=== PATIENT | male | born 1970 | race Caucasian/White ===

== ENCOUNTER 2016-09-19 13:26 | Outpatient (CLI) | payer OTHER ==
[~2016-09-19] VITALS: Ht 172.7 cm; Wt 110.9 kg
[~2016-09-19 13:26] MED LIST: ACET-789 PO; CEPH-507 PO; SULF1TAB35 PO
--- OUTSIDE RECORDS SUMMARY | 2016-09-19 13:30 | XMS REPORT | Continuity of Care Document ---
Author Author [facility] Organization [facility] Address Unknown Phone Unavailable Care Team Providers Care Senior Medical Director Name Role Phone TALI HOUSER DO PCP Insurance Providers Payer Name Policy Number Subscriber Name Relationship Self Pay Pending [facility] Apprv [id number] Lindsay Garza 18 Self / Same As Patient Advance Directives Directive Response Recorded Date/Time Advance Directives No 04/14/16 6:33pm Health Care Power of Support Engineer No 04/14/16 6:33pm Organ Donor No 04/14/16 6:33pm Resuscitation Status Full Code 04/14/16 6:33pm Chief Complaint and Reason for Visit Chief Complaint LEUKOCYTOSIS,N/V,SEIZURE-LIKE ACTIVITY Reason for Visit Nausea & vomiting Puncture wound of leg excluding thigh Problems Active Problems Medical Problem Onset Date Status Myoclonic jerking Unknown Acute Nausea & vomiting Unknown Acute Puncture wound of leg excluding thigh Unknown Acute Medications Current Home Medications Medication Dose Units Route Directions Days/Qty Instructions Start Date Acetaminophen With Codeine 1 Each 1 Each Oral Every 4HRS for Pain 15 04/18/16 Past Home Medications Medication Directions Ordered Status Cephalexin 500 Mg Capsule, 500 Mg Oral Three Times A Day 04/08/16 Discontinued Sulfamethoxazole/Trimethoprim 1 Each Tablet, 1 Each Oral Twice A Day Discontinued Cephalexin 500 Mg Capsule, 500 Mg Oral Three Times A Day 04/15/16 Discontinued Sulfamethoxazole/Trimethoprim 1 Each Tablet, 1 Tab Oral Twice A Day 04/15/16 Discontinued Social History Social History Problem Response Recorded Date/Time Alcohol Use Regular Use 04/14/2016 6:33pm Recreational Drug Use No 04/14/2016 6:33pm Recent Foreign Travel No 04/14/2016 7:11pm Recent Infectious Disease Exposure No 04/14/2016 7:11pm Hospitalization with Isolation Denies 04/18/2016 7:01pm Smoking Status Current Everyday Smoker 04/14/2016 6:33pm Type Used Cigarettes 04/17/2016 2:14pm Recent Hopitalizations No 04/14/2016 6:33pm Hospitalization with Isolation Denies 04/18/2016 7:01pm Query Response Start Date Stop Date Smoking Status Current Everyday Smoker Hospital Discharge Instructions No hospital discharge instructions. Plan of Care Discharge Date 04/18/16 7:01pm Disposition 01 HOME, SELF-CARE Instructions/Education Provided Cholecystitis (DC) Prescriptions See Medication Section Referrals TALI HOUSER DO (Unspecified) - 04/20/16 Address: [address] [place] [id number] [phone] GIANNA ELIZALDE DO (Unspecified) - Address: [address] [place] [address] [phone] Reason(s) for Referral: DR. ELIZALDE'S OFFICE WILL CALL YOU TOMORROW TO MAKE A FOLLOW UP APPOINTMENT Functional Status Query Response Date Recorded Patient Orientation Person Place Time Situation Normal For Age April 18, 2016 7:01pm Patient Orientation Person Place Time Situation April 18, 2016 7:01pm Comprehension Ability Understands Concepts April 17, 2016 8:00pm Allergies, Adverse Reactions, Alerts Allergen Type Severity Reaction Status Last Updated sulfamethoxazole ([id number]) Allergy Intermediate HIVES Active 04/15/16 Trimethoprim Allergy Intermediate HIVES Active 04/15/16 Immunizations Name Given Type DTaP-Tetanus, Dipth, Pertuss P/F (Boostrix) 04/08/16 Administered FLU TRIvalent 5 years - Adult 04/17/16 Administered Vital Signs Acute Vital Signs Vital Response Date/Time Temperature (Fahrenheit) 96.8 degrees F (97.6 - 99.5) 04/18/2016 4:00pm Temperature (Calculated Celsius) 36.28489 degrees C (36.4 - 37.5) 04/18/2016 4:00pm Temperature Source Tympanic 04/18/2016 4:00pm Pulse Rate (adult) 75 bpm (60 - 90) 04/18/2016 4:00pm Respiratory Rate 20 bpm (12 - 24) 04/18/2016 4:00pm O2 Sat by Pulse Oximetry 91 % (88 - 100) 04/18/2016 4:00pm Blood Pressure 109/64 mm Hg 04/18/2016 4:00pm Blood Pressure Mean 79 mm Hg 04/18/2016 4:00pm Pain Numeric Pain Scale 0-No Pain 04/18/2016 4:00pm Height (Feet) 5 feet 04/14/2016 7:11pm Height (Inches) 8.00 inches 04/14/2016 7:11pm Height (Calculated Centimeters) 172.699021 cm 04/14/2016 7:11pm Weight (Pounds) 180 pounds 04/14/2016 7:11pm Weight (Ounces) 7.0 oz 04/14/2016 7:11pm Weight (Calculated Grams) 41796.07 gm 04/14/2016 7:11pm Weight (Calculated Kilograms) 81.199492 kilograms 04/14/2016 7:11pm Calculated BMI 27.4 04/14/2016 7:11pm Capillary Refill Capillary Refill Less Than 3 Seconds 04/14/2016 3:38pm Results Pending Laboratory Results Test Name Collection Date/Time Pending Microbiology Results Procedure Source Collection Date/Time Procedures Procedure Status Date Provider(s) Laparoscopic cholecystectomy Completed 04/18/16 GIANNA ELIZALDE DO Encounters Encounter Location Arrival/Admit Date Discharge/Depart Date Attending Provider Discharged Inpatient [facility] 04/14/16 6:33pm 7:01pm TALI HOUSER DO Departed Emergency Room [facility] 04/11/16 8:47am 04/11 9:10am BONG FOSTER MD Departed Emergency Room [facility] 04/08/16 10:00pm 11:21pm KIKO HOUSER APRN Recent Diagnosis Nausea & vomiting Puncture wound of leg excluding thigh
[2016-09-19 13:38] VITALS: BP 128/95
[2016-09-19 14:01] LABS: BASOPHILS % (AUTO) 0 % (0-10); EOSINOPHILS # (AUTO) 0.1 10^3/uL (0.0-0.3); EOSINOPHILS % (AUTO) 1 % (0-10); LYMPHOCYTES # (AUTO) 2.5 X 10^3 (1.0-4.0); LYMPHOCYTES % (AUTO) 33 % (12-44); MEAN CORPUSCULAR HEMOGLOBIN 32 PG (25-34); MEAN CORPUSCULAR HGB CONC 35 G/DL (32-36); MEAN CORPUSCULAR VOLUME 90 FL (80-99); MEAN PLATELET VOLUME 10.5 FL (7.4-10.4); MONOCYTES # (AUTO) 0.7 X 10^3 (0.0-1.0); MONOCYTES % (AUTO) 10 % (0-12); NEUTROPHILS # (AUTO) 4.3 X 10^3 (1.8-7.8); NEUTROPHILS % (AUTO) 56 % (42-75); PLATELET COUNT 243 10^3/uL (130-400); RED BLOOD COUNT 4.92 10^6/uL (4.35-5.85); RED CELL DISTRIBUTION WIDTH 13.2 % (10.0-14.5); WHITE BLOOD COUNT 7.6 10^3/uL (4.3-11.0)
[2016-09-22] MEDS ORDERED: HYDR-3812 PO (14:03)
[2016-09-22] MEDS ORDERED: DOCU-143 PO (14:03)
== END 2016-09-19 14:08 | disposition home or self-care (01) ==
LOC: PREOP 13:26
PROVIDERS: ATTEND Surgery
DX: Z01.812 Encounter for preprocedural laboratory examination (principal); Z11.2 Encounter for screening for other bacterial diseases; K43.2 Incisional hernia without obstruction or gangrene
CPT/HCPCS: 36415; 85025; 87081

== ENCOUNTER 2016-09-22 10:45 | Day surgery (SDC) | payer OTHER ==
[~2016-09-22] VITALS: Ht 172.7 cm; Wt 110.9 kg
--- OUTSIDE RECORDS SUMMARY | 2016-09-22 10:48 | XMS REPORT | Continuity of Care Document ---
Author Author [facility] Organization [facility] Address Unknown Phone Unavailable Care Team Providers Care Hazmat Cdl A Driver Name Role Phone TALI HOUSER DO PCP Insurance Providers Payer Name Policy Number Subscriber Name Relationship Self Pay Lindsay Garza 18 Self / Same As Patient Advance Directives Directive Response Recorded Date/Time Advance Directives No 09/19/16 1:34pm Health Care Power of Welding Machine Operator Arc No 09/19/16 1:34pm Organ Donor No 09/19/16 1:34pm Resuscitation Status Full Code 09/19/16 1:34pm Problems Active Problems Medical Problem Onset Date Status Myoclonic jerking Unknown Acute Nausea & vomiting Unknown Acute Puncture wound of leg excluding thigh Unknown Acute Medications No known medications. Social History Social History Problem Response Recorded Date/Time Alcohol Use Past History 09/19/2016 1:34pm Recreational Drug Use No 09/19/2016 1:34pm Recent Foreign Travel No 09/19/2016 1:33pm Recent Infectious Disease Exposure No 09/19/2016 1:33pm Sexually Transmitted Disease No 09/19/2016 1:34pm HIV/AIDS No 09/19/2016 1:34pm Smoking Status Former Smoker 09/19/2016 1:34pm Type Used Cigarettes 09/19/2016 1:34pm Recent Hopitalizations No 09/19/2016 1:34pm Sexually Transmitted Disease No 09/19/2016 1:34pm Query Response Start Date Stop Date Smoking Status Former Smoker Hospital Discharge Instructions No hospital discharge instructions. Plan of Care Discharge Date 09/19/16 2:08pm Prescriptions See Medication Section Functional Status No functional status results. Allergies, Adverse Reactions, Alerts Allergen Type Severity Reaction Status Last Updated sulfamethoxazole ([id number]) Allergy Intermediate HIVES Active 09/19/16 Trimethoprim Allergy Intermediate HIVES Active 09/19/16 Immunizations No immunization records. Vital Signs Acute Vital Signs Vital Response Date/Time Pulse Rate (adult) 101 bpm (60 - 90) 09/19/2016 1:38pm Respiratory Rate 16 bpm (12 - 24) 09/19/2016 1:38pm O2 Sat by Pulse Oximetry 96 % (88 - 100) 09/19/2016 1:38pm Blood Pressure 128/95 mm Hg 09/19/2016 1:38pm Blood Pressure Mean 106 mm Hg 09/19/2016 1:38pm Pain Numeric Pain Scale 0-No Pain 09/19/2016 1:38pm Height (Feet) 5 feet 09/19/2016 1:33pm Height (Inches) 8.00 inches 09/19/2016 1:33pm Height (Calculated Centimeters) 172.640896 cm 09/19/2016 1:33pm Weight (Pounds) 244 pounds 09/19/2016 1:33pm Weight (Ounces) 7.0 oz 09/19/2016 1:33pm Weight (Calculated Grams) 093954.99 gm 09/19/2016 1:33pm Weight (Calculated Kilograms) 110.464521 kilograms 09/19/2016 1:33pm Calculated BMI 37.2 09/19/2016 1:33pm Results Laboratory Results Test Name Result Units Flags Reference Collection Date/Time Result Date/ Time Comments White Blood Count 7.6 10^3/uL 4.3-11.0 09/19/2016 1:35pm 09/19/2016 2: 04pm Red Blood Count 4.92 10^6/uL 4.35-5.85 09/19/2016 1:35pm 09/19/2016 2: 04pm Hemoglobin 15.5 G/DL 13.3-17.7 09/19/2016 1:35pm 09/19/2016 2:04pm Hematocrit 44 % 40-54 09/19/2016 1:35pm 09/19/2016 2:04pm Mean Corpuscular Volume 90 FL 80-99 09/19/2016 1:35pm 09/19/2016 2: 04pm Mean Corpuscular Hemoglobin 32 PG 25-34 09/19/2016 1:35pm 09/19/2016 2: 04pm Mean Corpuscular Hemoglobin Concent 35 G/DL 32-36 09/19/2016 1:35pm 2:04pm Red Cell Distribution Width 13.2 % 10.0-14.5 09/19/2016 1:35pm 2016 2:04pm Platelet Count 243 10^3/uL 130-400 09/19/2016 1:35pm 09/19/2016 2:04pm Mean Platelet Volume 10.5 FL H 7.4-10.4 09/19/2016 1:35pm 09/19/2016 2: 04pm Neutrophils (%) (Auto) 56 % 42-75 09/19/2016 1:35pm 09/19/2016 2:04pm Lymphocytes (%) (Auto) 33 % 12-44 09/19/2016 1:3509/19/2016 2:04pm Monocytes (%) (Auto) 10 % 0-12 09/19/2016 1:3509/19/2016 2:04pm Eosinophils (%) (Auto) 1 % 0-10 09/19/2016 1:35pm 09/19/2016 2:04pm Basophils (%) (Auto) 0 % 0-10 09/19/2016 1:35pm 09/19/2016 2:04pm Neutrophils # (Auto) 4.3 X 10^3 1.8-7.8 09/19/2016 1:3509/19/2016 2: 04pm Lymphocytes # (Auto) 2.5 X 10^3 1.0-4.0 09/19/2016 1:3509/19/2016 2: 04pm Monocytes # (Auto) 0.7 X 10^3 0.0-1.0 09/19/2016 1:35pm 09/19/2016 2: 04pm Eosinophils # (Auto) 0.1 10^3/uL 0.0-0.3 09/19/2016 1:35pm 09/19/2016 2 :04pm Basophils # (Auto) 0.0 10^3/uL 0.0-0.1 09/19/2016 1:35pm 09/19/2016 2: 04pm Procedures No known history of procedures. Encounters Encounter Location Arrival/Admit Date Discharge/Depart Date Attending Provider Departed Clinic [facility] 09/19/16 1:26pm 09/19/16 2: 08pm SHANICE TIRADO DO
--- OUTSIDE RECORDS SUMMARY | 2016-09-22 10:50 | XMS REPORT | Continuity of Care Document ---
Author Author [facility] Organization [facility] Address Unknown Phone Unavailable Care Team Providers Care Finishing Area Operator Name Role Phone TALI HOUSER DO PCP Insurance Providers Payer Name Policy Number Subscriber Name Relationship Self Pay Lindsay Garza 18 Self / Same As Patient Advance Directives Directive Response Recorded Date/Time Advance Directives No 09/19/16 1:34pm Health Care Power of [employer] Barista No 09/19/16 1:34pm Organ Donor No 09/19/16 [...] Type Severity Reaction Status Last Updated sulfamethoxazole ([id number]) Allergy Intermediate HIVES Active 09/19/16 Trimethoprim Allergy [...] 8.00 inches 09/19/2016 1:33pm Height (Calculated Centimeters) 172.493053 cm 09/19/2016 1:33pm Weight (Pounds) 244 pounds 09/19/2016 1:33pm Weight (Ounces) 7.0 oz 09/19/2016 1:33pm Weight (Calculated Grams) 860426.99 gm 09/19/2016 1:33pm Weight (Calculated Kilograms) 110.672160 kilograms 09/19/2016 1:33pm Calculated BMI 37.2 09/19/2016 [...] Discharge/Depart Date Attending Provider Departed Clinic [facility] 09/19/16 1:26pm 09/19/16 2: 08pm SHANICE TIRADO DO
[2016-09-22] MEDS ORDERED: ceFAZolin 2 GM/50 ML NS 50 ML IV ONE (10:53)
--- NOTE | 2016-09-22 11:03 | Progress Note-Pre Operative ---
Pre-Operative Progress Note H&P Reviewed The H&P was reviewed, patient examined and no changes noted. Date H&P Reviewed: Sep 22, 2016 Time H&P Reviewed: 11:03 Pre-Operative Diagnosis: incisional hernia SHANICE TIRADO DO Sep 22, 2016 11:03 am
[2016-09-22] MEDS ORDERED: ceFAZolin 2 GM/NS 50 ML IV ONE (11:15)
[2016-09-22] MEDS ORDERED: BUPIVACAINE 0.5% 30 ML (SENSORCAINE) VIAL ONE (12:14)
[2016-09-22] MEDS ORDERED: LIDOCAINE 1% INJ 20 ML (XYLOCAINE) VIAL ONE (12:14)
[2016-09-22 12:23] VITALS: BP 116/80
[2016-09-22] MEDS ORDERED: fentaNYL INJECTION 250 MCG/5 ML AMP ONE (12:53)
[2016-09-22] MEDS ORDERED: proPOfol 200 MG/20 ML (DIPRIVAN) VIAL IV ONE (12:53)
[2016-09-22] MEDS ORDERED: MIDAZOLAM 2 MG/2 ML (VERSED) VIAL ONE (12:53)
[2016-09-22] MEDS ORDERED: SEVOFLURANE (ULTANE) 15 ML INHAL SOLN ONE (13:39)
[2016-09-22] MEDS ORDERED: LACTATED RINGERS 2,000 ML IV ONE (13:39)
[2016-09-22] MEDS ORDERED: KETOROLAC 30 MG/ML VIAL ONE (13:39)
[2016-09-22] MEDS ORDERED: ROCURONIUM 50 MG/5 ML (ZEMURON) VIAL IV ONE (13:39)
[2016-09-22] MEDS ORDERED: ONDANSETRON 4 MG/2 ML (SDV) Z0FRAN ONE (13:39)
[2016-09-22] MEDS ORDERED: NEOSTIGMINE (BLOXIVERZ ) 1 MG/1ML 10 ML VIAL ONE (13:54)
[2016-09-22] MEDS ORDERED: GLYCOPYRROLATE 0.2 MG/ML (ROBINUL) 2 ML VIAL ONE (13:54)
[2016-09-22] MEDS ORDERED: LACTATED RINGERS 1,000 ML BAG IV SCH (14:00)
--- NOTE | 2016-09-22 14:02 | Progress Note-Post Operative ---
Post-Operative Progess Note Bottom Worker Dr. Coronado Pre-Operative Diagnosis incisional hernia Post-Operative Diagnosis inisional hernia Post-Op Procedure Note Date of Procedure: Sep 22, 2016 Name of Procedure: lap incisional hernia repair Procedure Note/Findings see note Anesthesia Type general Estimated blood loss (mL): minimal Specimen(s) collected none SHANICE TIRADO DO Sep 22, 2016 2:02 pm
[2016-09-22] MEDS ORDERED: HYDR-3812 PO (14:03)
[2016-09-22] MEDS ORDERED: DOCU-143 PO (14:03)
--- NOTE | 2016-09-22 14:05 | Discharge Inst-Simple/Standard ---
Discharge Inst-Standard Discharge Medications New, Converted or Re-Newed RX: RX on Chart Patient Instructions/Follow Up Plan of Care/Instructions/FU: 2 weeks Bob Activity as Tolerated: No Discharge Diet: Regular Diet Other Inst to Patient Follow up Appt: Make appointment for 2 week. Instructions: No lifting greater than 10 pounds. No strenuous activity. May shower in 24 hours, no tub bath or soaking. Use incentive spirometer at home as directed. No Smoking Skin/Wound Care: May remove bandages in 24 hours. You need to leave the white strips over incision on they will fall off on their own. Symptoms to Report: Appetite Changes, Extremity Discoloration, Numbness/Tingling, Swelling Increased , Bleeding Excessive, Eyesight Changes, Pain Increased, Urine Color Change, Constipation(Persistent), Fever over 101 degree F, Pain/Pressure in chest, Urinating Difficulty, Cough Up/Vomit Blood, Heart Beat Irreg/Pounding, Pain/ Pressure in jaw, Vaginal Bleeding Increase, Cramps in feet or legs, Lightheadedness, Pain/Pressure in shoulder, Diarrhea(Persistent), Memory Changes Suddenly, Questions/Concerns, Weight gain consecutive days, Dizziness/ Fainting, Nausea/Vomiting, Shortness of Breath, Weight gain over 2 pounds If questions or concerns contact your physician Or seek help at emergency department. SHANICE TIRADO DO Sep 22, 2016 2:05 pm
[2016-09-22] MEDS ORDERED: morphine INJ 10 MG/ML 1ML (SYR OR VIAL) ONE (14:08)
[2016-09-22] MEDS ORDERED: HYDROcodone/APAP 5 MG/325 MG (LORTAB) TAB PO PRN (14:15)
[2016-09-22] MEDS ORDERED: HYDROmorphone (DILAUDID) 2 MG/ML VIAL ONE (14:16)
[2016-09-22] MEDS: HYDROmorphone (DILAUDID) 2 MG/ML VIAL IV PRN ×2 (14:23→14:32)
[2016-09-22] MEDS ORDERED: ONDANSETRON 4 MG/2 ML (SDV) Z0FRAN IV PRN (14:30)
[2016-09-22] MEDS ORDERED: LACTATED RINGERS 1,000 ML IV SCH (15:15)
[2016-09-22 15:25] VITALS: BP 134/100
[2016-09-22 15:55] VITALS: BP 119/78
[2016-09-22 16:25] VITALS: BP 120/76
[2016-09-22 16:35] VITALS: BP 120/76
--- NOTE | 2016-09-23 09:16 | OPERATIVE REPORT ---
PROCEDURE PHYSICIAN: SHANICE TIRADO DATE OF PROCEDURE: 09/22/2016 PREOPERATIVE DIAGNOSIS: Incisional hernia. POSTOPERATIVE DIAGNOSIS: Incisional hernia. PROCEDURE: Laparoscopic incisional hernia repair. SURGEON: Bob. CASHIER ASSOCIATE: Dr. Coronado, assist in retraction, dissection, and closure. ANESTHESIA: General. ESTIMATED BLOOD LOSS: Minimal. COMPLICATIONS: None. INDICATIONS: The patient is a 46-year-old male who has incisional hernia. It is increasing in size and causes discomfort. He understood risks and benefits of procedure and wished to proceed with the procedure. Consent was signed on the chart. PROCEDURE: The patient was taken to the operating suite. He was prepped and draped in the sterile fashion. A surgical pause was performed. A stab incision in the left upper quadrant Veress needle was inserted in the abdomen, but pressure was not able to be adequate, therefore using the Visiport a 5 mm trocar was placed through the incision. Pneumoperitoneum was then achieved. Under direct visualization of the laparoscope, a 12 mm trocar was placed in left lower quadrant. A 5 mm trocar was placed in the right lower quadrant. The hernia content was of omental fat. This was able to be reduced without difficulty. 0-Vicryl with the Deshawn-Lisandro was able to be placed around the defect to close the defect. At this point an Echo 4.5 inches Ventralight mesh was then inserted in the abdomen and grasped with Deshawn-Lisandro through the stab incision at the umbilicus. The balloon was insufflated and then using a secure strap tacker a circumferential tacking was performed. An inner crown was created as well. The balloon was removed in its entirety; mesh had adequate overlay and laid nicely. At this point the 12 mm trocar was removed. This was then closed with 0 Vicryl using Deshawn-Lisandro the abdomen was then desufflated. The trocars were removed. All the incisions had been infiltrated with 0.5% Marcaine 1% lidocaine at a 50:50 ratio. Skin was then closed using 4-0 Vicryl. The area was then washed and dried. Mastisol and Steri-Strips were applied and sterile bandages were applied. The patient tolerated the procedure well without any complications. He was taken to recovery in addition in stable condition. Job ID: [id number] Dictated Date: 09/22/2016 14:17:01 Host/Hostess Date: 09/23/2016 09:09:21 / cori MÉNDEZ
== END 2016-09-22 16:35 | disposition home or self-care (01) ==
LOC: SDC 10:45
PROVIDERS: ATTEND Surgery
DX: K43.2 Incisional hernia without obstruction or gangrene (principal)
CPT/HCPCS: 94664

== ENCOUNTER 2017-10-07 18:55 | Emergency (ER) | payer SELFPAY ==
[~2017-10-07] VITALS: Ht 172.7 cm; Wt 90.9 kg
[~2017-10-07 18:55] MED LIST changes: +ACHD5005 PO; +DOCU-143 PO
--- NOTE | 2017-10-07 20:02 | Diagnostic Imaging Report ---
EXAM: Ribs, left 2-3 views. INDICATION: Fall. Left chest wall pain. COMPARISON: Chest radiographs, 04/15/2016. FINDINGS: There is mild atelectasis in the left lung base. Acute mildly displaced left lateral tenth rib fracture. No other rib fracture is identified. IMPRESSION: Acute appearing mildly displaced left 10th rib fracture. Paraspinal atelectasis in the left lung base. Dictated by: Dictated on workstation # [id number]
--- NOTE | 2017-10-07 20:27 | ED General ---
General Chief Complaint: Chest Wall/Rib Pain Stated Complaint: RIB PAIN Nursing Triage Note: c/o L rib pain after falling on magaña crop picker in garage last night Nursing Sepsis Screen: No Definite Risk History of Present Illness Date Seen by Provider: Oct 07, 2017 Time Seen by Provider: 19:45 Initial Comments 47-year-old male reports falling in his garage yesterday evening and landing on a mag[place] crop picker on his left posterior chest. He reports the pain has been continuous since the injury. He denies any dyspnea or other concerns. He had no head injury at the time of the fall. Timing/Duration: 24 Hours Severity: Moderate Modifying Factors: improves with Rest Associated Systoms: Chest Pain (Left posterior), No Shortness of Air, No Syncope, No Weakness Allergies and Home Medications Allergies Coded Allergies: sulfamethoxazole (Verified Allergy, Intermediate, HIVES, 09/19/16) trimethoprim (Verified Allergy, Intermediate, HIVES, 09/19/16) Home Medications Docusate Sodium 100 Mg Capsule, 100 MG PO BID Prescribed by: SHANICE TIRADO on 09/22/16 1403 Hydrocodone Bit/Acetaminophen 1 Each Tablet, 1 TAB PO Q4H PRN Prescribed by: SHANICE TIRADO on 09/22/16 1403 Hydrocodone Bit/Acetaminophen 1 Tab Tab, 1 EACH PO Q6H PRN for PAIN Prescribed by: LONDON WAGNER on 10/07/172101 Patient Home Medication List Home Medication List Reviewed: Yes Constitutional: no symptoms reported, see HPI Respiratory: no symptoms reported, see HPI, No dyspnea on exertion, No short of breath All Other Systems Reviewed Negative Unless Noted: Yes Past Mogrwnq-Gdlooy-Gqlili Hx Patient Social History Alcohol Use: Denies Use Number of Drinks Today: AA Alcohol Beverage of Choice: Beer Recreational Drug Use: No Type Used: Cigarettes Former Smoker, Quit: Apr 18, 2016 Recent Foreign Travel: No Contact w/Someone Who Travel: No Recent Infectious Disease Expo: No Recent Hopitalizations: No Immunizations Up To Date Tetanus Booster (TDap): Less than 5yrs PED Vaccines UTD: Yes Seasonal Allergies Seasonal Allergies: Yes Surgeries History of Surgeries: Yes (skin graft to left lower leg, plate in head, PINS IN HAND) Surgeries: Gallbladder, Orthopedic, Tonsillectomy Respiratory History of Respiratory Disorde: No Cardiovascular History of Cardiac Disorders: No Neurological History of Neurological Disord: No Reproductive System Hx Reproductive Disorders: No Sexually Transmitted Disease: No HIV/AIDS: No Gastrointestinal History of Gastrointestinal Di: Yes (INCISIONAL HERNIA) Musculoskeletal History of Musculoskeletal Dis: No Endocrine History of Endocrine Disorders: No HEENT Loss of Vision: Denies Hearing Impairment: Denies Cancer History of Cancer: No Psychosocial History of Psychiatric Problem: No Integumentary History of Skin or Integumenta: No Blood Transfusions History of Blood Disorders: No Adverse Reaction to a Blood Tr: No (N/A) Reviewed Nursing Assessment Reviewed/Agree w Nursing PMH: Yes Family Medical History Significant Family History: Cancer Family Medial History: Absence seizures 19 MOTHER, Onset:60 years & older FH: breast cancer in first degree relative 19 MOTHER FH: throat cancer 19 FATHER Physical Exam Vital Signs Vital Signs - First Documented 10/07/17 19:33 Temp 98.2 Pulse 97 Resp 18 B/P (MAP) 140/84 (102) Pulse Ox 94 Capillary Refill : Less Than 3 Seconds General Appearance: No Apparent Distress, WD/WN Eyes: Bilateral Eye Normal Inspection, Bilateral Eye PERRL, Bilateral Eye EOMI HEENT: PERRL/EOMI, TMs Normal, Normal ENT Inspection, Pharynx Normal Neck: Full Range of Motion, Normal Inspection, Non Tender, Supple Respiratory: Lungs Clear, Normal Breath Sounds, Other (Pain in the posterior and lateral chest wall over the 8-11 ribs. no Crepitus felt.) Cardiovascular: Regular Rate, Rhythm, No Edema, No Murmur, Normal Peripheral Pulses Gastrointestinal: Normal Bowel Sounds, Non Tender, Soft Back: Normal Inspection, No CVA Tenderness, No Vertebral Tenderness Extremity: Normal Capillary Refill, Normal Inspection, Normal Range of Motion, Non Tender Neurologic/Psychiatric: Alert, Oriented x3, No Motor/Sensory Deficits, Normal Mood/Affect Progress/Results/Core Measures Suspected Sepsis Recent Fever Within 48 Hours: No Infection Criteria Present: None New/Unexplained Altered Menta: No Sepsis Screen: No Definite Risk Sepsis Diagnosis: SIRS Temperature:98.2 Pulse: 97 Respiratory Rate: 18 Blood Pressure 140 /84 Mean: 102 Results/Orders My Orders Orders - LONDON WAGNER Chest Pa/Lat (2 View) (10/07/17 20:27) Hydrocodone/Apap 5/325 Tablet (Lortab 5 (10/07/17 20:44) Vital Signs/I&O Capillary Refill : Less Than 3 Seconds Blood Pressure Mean: 102 Diagnostic Imaging Diagonstic Imaging: Xray Comments NAME: [facility] REC#: [id number] PT STATUS: REG ER : 1970 PHYSICIAN: JON BOWEN MD ADMIT DATE: 10/07/17/ER Draft Date of Exam:10/07/17 RIBS, LEFT 2-3 VIEWS EXAM: Ribs, left 2-3 views. INDICATION: Fall. Left chest wall pain. COMPARISON: Chest radiographs, 04/15/2016. FINDINGS: There is mild atelectasis in the left lung base. Acute mildly displaced left lateral tenth rib fracture. No other rib fracture is identified. IMPRESSION: Acute appearing mildly displaced left 10th rib fracture. Paraspinal atelectasis in the left lung base. Dictated on workstation # [id number] Dict: 10/07/171955 Trans: 10/07/172000 [facility] [id number] Interpreted by: NISA IRIZARRY MD Electronically signed by: Reviewed: Reviewed by Nd Diagonstic Imaging: Xray Plain Films/CT/US/NM/MRI: chest Comments NAME: LINDSAY GARZA [facility] REC#: [id number] PT STATUS: REG ER : 1970 PHYSICIAN: LONDON WAGENR ADMIT DATE: 10/07/17/ER Draft Date of Exam:10/07/17 CHEST PA/LAT (2 VIEW) EXAM: CHEST PA/LAT (2 VIEW) INDICATION: Left chest wall injury. Atelectasis. COMPARISON: Left rib radiographs from earlier today. FINDINGS: The mildly displaced left lateral rib fractures are better appreciated on the dedicated radiographs. Persistent atelectasis in the left lung base. No pleural effusion or pneumothorax. Normal heart size and pulmonary vascularity. Cholecystectomy clips. IMPRESSION: Stable atelectasis in left lung base. No pleural effusion or pneumothorax. The known left rib fractures better appreciated on the dedicated radiographs from earlier today. Dictated on workstation # [id number] Dict: 10/07/172045 Trans: 10/07/172048 [id number] Interpreted by: NISA IRIZARRY MD Electronically signed by: Reviewed: Reviewed/Discussed Departure Impression Impression: Primary Impression: Left rib fracture Qualified Codes: S22.32XA - Fracture of one rib, left side, initial encounter for closed fracture Additional Impression: Fall Disposition: 01 HOME, SELF-CARE Condition: Stable Departure-Patient Inst. Decision time for Depature: 21:00 Referrals: TALI HOUSER DO (PCP/Family) Primary Care Physician Patient Instructions: Rib Fracture (DC) Add. Discharge Instructions: Alternate ice and warm moist compressions to left rib pain. Cough and deep breathe 10 times every hour while awake. Follow-up with Dr. Houser in approximately one week, sooner if symptoms are not improving or worsen. Use prescription pain medicine for severe pain otherwise she may take Tylenol 650 mg alternating with ibuprofen 600 mg every 4 hours. Return to emergency department if difficulty breathing, fever greater than 101 , or new problems. All discharge instructions reviewed with patient and/or family. Voiced understanding. Scripts Hydrocodone Bit/Acetaminophen (Hydrocodone/Acetaminophen 5/325mg Tablet) 1 Tab Tab 1 EACH PO Q6H Y for PAIN, #12 TAB 0 Refills Prov: LONDON WAGNER 10/07/17 Work/School Note: Work Release Form Date Seen in the Emergency Department: Oct 07, 2017 Return to Work: Oct 09, 2017 Other Restrictions Listed Below: Light duty as tolerated for left rib fracture. Copy Copies To 1: TALI HOUSER AMY ARNP Oct 07, 2017 20:27
[2017-10-07] MEDS ORDERED: HYDROcodone/APAP 5 MG/325 MG (LORTAB) TAB PO STA (20:44)
--- NOTE | 2017-10-07 20:50 | Diagnostic Imaging Report ---
EXAM: CHEST PA/LAT (2 VIEW) INDICATION: Left chest wall injury. Atelectasis. COMPARISON: Left rib radiographs from earlier today. FINDINGS: The mildly displaced left lateral rib fractures are better appreciated on the dedicated radiographs. Persistent atelectasis in the left lung base. No pleural effusion or pneumothorax. Normal heart size and pulmonary vascularity. Cholecystectomy clips. IMPRESSION: Stable atelectasis in left lung base. No pleural effusion or pneumothorax. The known left rib fractures better appreciated on the dedicated radiographs from earlier today. Dictated by: Dictated on workstation # [id number]
[2017-10-07] MEDS ORDERED: ACHD5005 PO (21:02)
[2017-10-07 21:06] VITALS: BP 140/84
== END 2017-10-07 21:08 | disposition home or self-care (01) ==
LOC: EDUNIT# 18:55 → ER 18:57
DX: S22.32XA Fracture of one rib, left side, initial encounter for closed fracture (principal); Z87.19 Personal history of other diseases of the digestive system; Z90.89 Acquired absence of other organs; Z87.891 Personal history of nicotine dependence; Z88.2 Allergy status to sulfonamides; Z88.1 Allergy status to other antibiotic agents; W01.198A Fall on same level from slipping, tripping and stumbling with subsequent striking against other object, initial encounter; Y92.59 Other trade areas as the place of occurrence of the external cause
CPT/HCPCS: 71046; 71100